=== PATIENT | female | born 1990 | race Caucasian/White ===

== ENCOUNTER 2020-03-09 07:00 | Outpatient (CLI) | payer OTHER | END 2020-03-09 23:59 | disposition home or self-care (01) | LOC: LAB.R 07:00 | PROVIDERS: ATTEND Surgery | DX: K92.1 Melena (principal) | CPT/HCPCS: 81599; 87045; 87046; 87177; 87209; 87427 ==

== ENCOUNTER 2021-03-30 14:42 | Outpatient (CLI) | payer OTHER | END 2021-03-30 14:43 | disposition home or self-care (01) | LOC: NS 14:42 | PROVIDERS: ATTEND Physician Assistant Medical | DX: Z71.3 Dietary counseling and surveillance (principal); K58.9 Irritable bowel syndrome, unspecified | CPT/HCPCS: 97802 ==

== ENCOUNTER 2022-07-15 13:45 | Outpatient (CLI) | payer OTHER ==
--- NOTE | 2022-07-15 14:21 | XRAY Report ---
PROCEDURE: Knee 3 View LT INDICATIONS: KNEE PAIN LEFT TECHNIQUE: 3 views of the left knee were acquired. COMPARISON: None. FINDINGS: Bones: Postsurgical changes are seen from prior anterior cruciate ligament reconstruction. No acute osseous fracture or dislocation. Sclerotic appearance of the medial femoral condyle is nonspecific an d may be related to prior surgery or degenerative changes. Small marginal osteophytes are seen at the medial femorotibial joint. Soft tissues: No joint effusion. No suspicious soft tissue calcifications. IMPRESSION: 1.Postsurgical changes from prior anterior cruciate ligament reconstruction. 2.Heterogeneous sclerotic appearance of the medial femoral condyle is of uncertain etiology and may b e related to prior surgery versus degenerative changes or another process. Consider MRI for further e valuation if symptoms persist. Reviewed by: Denny Farias MD on 07/15/2022 2:20 PM PST Approved by: Denny Farias MD on 07/15/2022 2:20 PM PST Station ID: [id number]
== END 2022-07-15 13:46 | disposition home or self-care (01) ==
LOC: DI 13:45
PROVIDERS: ATTEND Physician Assistant Medical
DX: M25.562 Pain in left knee (principal)

== ENCOUNTER 2022-08-03 17:11 | Outpatient (CLI) | payer OTHER ==
--- NOTE | 2022-08-04 09:52 | MRI Report ---
PROCEDURE: KNEE WO - LT INDICATIONS: LEFT KNEE PAIN TECHNIQUE: Noncontrast sagittal PD fast spin echo and T2 fast spin echo with fat saturation, sagittal 3-D gradie nt sequence with fat saturation; coronal T1 spin echo and PD fast spin echo with fat saturation, and axial PD fast spin echo with fat saturation through the knee. COMPARISON: 07/15/2022 FINDINGS: Image quality: Good Menisci Medial: There is truncation and probably postsurgical changes of the medial meniscus. The free edge i n particular appears diminutive, particularly at the posterior root (09/26). Lateral: Intact. Meniscopopliteal fascicles maintained. Cruciate ligaments: Status post ACL graft replacement. There is a focal area high T2 signal at the po sterior aspect of the graft. The PCL appears intact. Medial structures MCL: Intact Pes anserine tendons: Intact Semimembranosus: Intact Lateral structures LCL: Intact Biceps femoris: Intact IT band: Intact Popliteus tendon: Intact Anterior structures Extensor mechanism: Intact Fat pads: Mild focal edema at the superolateral portion of Hoffa's fat pad. Medial retinaculum: Intact. Trochlea: Unremarkable morphology. Bone and joint Bones: No fracture, dislocation, or suspicious edema Cartilage: Near full-thickness defect of the patellar median ridge with mild underlying marrow edema (3/6, 8). There is also a full-thickness fissure in the central weightbearing portion of the medial f emoral condyle (5/20), with mild underlying marrow edema. Joint space: Small joint effusion. Martinez's cyst: None Soft tissues: No significant vascular or other soft tissue pathology. IMPRESSION: Status post ACL graft repair with a focal area of high T2 signal in the posterior mid g raft, possibly sequelae of a partial tear. Sequela medial meniscal injury, possibly with postsurgical changes. There is truncation, particularly at the free edge near the root (09/26). Cartilage defects at the patellar median ridge and central weightbearing portion of the medial femora l condyle, with mild underlying marrow edema. Small joint effusion. Mild edema at the superolateral portion of Hoffa's fat pad. Reviewed by: Jett Clayton MD on 08/04/2022 9:50 AM PDT Approved by: Jett Clayton MD on 08/04/2022 9:50 AM PDT Station ID: [id number]
== END 2022-08-03 17:12 | disposition home or self-care (01) ==
LOC: DI 17:11
PROVIDERS: ATTEND Physician Assistant Medical
DX: R93.6 Abnormal findings on diagnostic imaging of limbs (principal); R93.89 Abnormal findings on diagnostic imaging of other specified body structures; M25.462 Effusion, left knee

== ENCOUNTER 2023-04-27 16:05 | Outpatient (CLI) | payer OTHER | END 2023-04-27 16:06 | disposition home or self-care (01) | LOC: DI 16:05 | PROVIDERS: ATTEND Physician Assistant Medical | DX: Z53.9 Procedure and treatment not carried out, unspecified reason (principal) ==

== ENCOUNTER 2023-05-03 14:36 | Outpatient (CLI) | payer OTHER ==
--- NOTE | 2023-05-04 17:58 | XRAY Report ---
PROCEDURE: TMJ's-Temporal Mandibular Jts INDICATIONS: ARTHRITIS OF LEFT TEMPOROMANDIBULAR JOINT TECHNIQUE: 6 views of the temporomandibular joints were obtained COMPARISON: None FINDINGS: Bones: Both mandibular condyles have an appropriate to contour. Joint spaces maintained. Opening clos ed mouth views unremarkable Soft tissues: No suspicious soft tissue calcifications. IMPRESSION: Normal temporal mandibular radiographs Reviewed by: Shankar Ball MD on 05/04/2023 4:57 PM AKST Approved by: Shankar Ball MD on 05/04/2023 4:57 PM AKST Station ID: [id number]
== END 2023-05-03 14:37 | disposition home or self-care (01) ==
LOC: DI.N 14:36
PROVIDERS: ATTEND Physician Assistant Medical
DX: M26.642 Arthritis of left temporomandibular joint (principal)

== ENCOUNTER 2025-02-14 16:09 | Observation (INO) ==
--- OUTSIDE RECORDS SUMMARY | 2025-02-14 16:50 | EXTERNAL MEDICAL SUMMARY RPT | Continuity of Care Document ---
Author Organization [place] Address [address] [address] Phone Problems date description facility 2025-02-14 10:38 Myalgia, unspecified site [facility] 2025-02-14 10:38 Other specified soft tissue dis orders [facility] 2025-02-14 10:47 Myalgia, unspecified site [facility] 2025-02-14 10:47 Other specified soft tissue dis orders [facility] Results/Labs test date facility value unit notes Result panel 1 SPECIFIC GRAVITY,URINE 2025-02-14 10:30 [facility] <=1.005 (missing) (missing) WBC,URINE 2025-02-14 10:30 [facility] 0-3 /hpf (missing) RBC,URINE 2025-02-14 10:30 [facility] 0-5 /hpf (missing) UROBILINOGEN,URINE 2025-02-14 10:30 [facility] 0.2 (NORMAL) e.u./dl (missing) PH,URINE 2025-02-14 10:30 [facility] 6.5 ph (missing) CLARITY,URINE 2025-02-14 10:30 [facility] CLEAR (missing) (missing) COLOR,URINE 2025-02-14 10:30 [facility] LT. YELLOW (missing) (missing) LEUKOCYTE ESTERASE, URINE 2025-02-14 10:30 [facility] NEGATIVE (missing) (missing) NITRITE,URINE 2025-02-14 10:30 [facility] NEGATIVE (missing) (missing) OCCULT BLOOD,URINE 2025-02-14 10:30 [facility] NEGATIVE (missing) (missing) BILIRUBIN,URINE 2025-02-14 10:30 [facility] NEGATIVE (missing) Bilirubin can be influenced by color interference. Please correlate positive results with clinical presentation GLUCOSE, URINE (UA) 2025-02-14 10[facility] NE[facility]missing) KETONES,URINE (UA) 2025-02-14 [facility] NEGAT[facility] mg/dl (missing) PROTEIN,URINE 2025-02-14 [facility] NEGATIVE mg/dl (missing) UR CULTURE IF IND 2025-02-14 10:30 [facility] NOT INDICATED (missing) (missing) SQUAMOUS EPITHELIAL CELL,UR 2025-02-14 10:[facility] Squamous (missing) (missing) BACTERIA,URINE 2025-02-14 10:30 [facility] /hpf (missing) Result panel 2 CREATININE 2025-02-14 10:45 [facility] 1.0 mg/dl As of November 2022 testing method has changed, this may include reference ranges. BILIRUBIN,TOTAL 2025-02-14 10:45 [facility] 1.1 mg/dl As of November 2022 testing method has changed, this may include reference ranges. ALBUMIN/GLOBULIN RATIO 2025-02-14 10:45 [facility] 1.7 (missing) (missing) CHLORIDE 2025-02-14 10:45 [facility] 105 mmol/l As of November 2022 testing method has changed, this may include reference ranges. SODIUM 2025-02-14 10:45 [facility] 137 mmol/l (missing) BUN - BLOOD UREA NITROGEN 2025-02-14 10:45 [facility] 15 mg/dl As of November 2022 testing method has changed, this may include reference ranges. ALT ALANINE AMINOTRANSFERASE 2025-02-14 10:45 [facility] 193 iu/l As of November 2022 testing method has changed, this may include reference ranges. GLOBULIN 2025-02-14 10:45 [facility] 2.6 g/dl (missing) CARBON DIOXIDE - CO2 2025-02-14 10:45 [facility] 26 mmol/l As of November 2022 testing method has changed, this may include reference ranges. ALKALINE PHOSPHATASE 2025-02-14 10:45 [facility] 34 iu/l As of November 2022 testing method has changed, this may include reference ranges. CK- CREATINE KINASE 2025-02-14 10:45 [facility] 77405 iu/l As of November 2022 testing method has changed, this may include reference ranges. POTASSIUM 2025-02-14 10:45 [facility] 4.0 mmol/l As of November 2022 testing method has changed, this may include reference ranges. ALBUMIN 2025-02-14 10:45 [facility] 4.3 g/dl As of November 2022 testing method has changed, this may include reference ranges. AST ASPARTATE AMINOTRANSFERASE 2025-02-14 10:45 [facility] 459 iu/l As of November 2022 testing method has changed, this may include reference ranges. ANION GAP 2025-02-14 10:45 [facility] 6.0 (missing) (missing) TOTAL PROTEIN 2025-02-14 10:45 [facility] 6.9 g/dl As of November 2022 testing method has changed, this may include reference ranges. GFR - MDRD 2025-02-14 10:45 [facility] 64 (missing) The IDMS-traceable MDRD Study Equation has been validated extensively in and populations between the ages of 18 and 70 with impaired kidney function (eGFR < 60 mL/min/1.73m2) and has shown good performance for patients with all common causes of kidney disease. Although this equation has not been validated for patients older than 70, an MDRD-derived eGFR may still be a useful tool for providers caring for patients older than 70. References: http://www.nkdep. nih.gov/lab-evalu ation/gfr/creatin ine-stand ardization, last updated July 2011. GLUCOSE 2025-02-14 10:45 [facility] 82 mg/dl As of November 2022 testing method has changed, this may include reference ranges. CALCIUM 2025-02-14 10:45 [facility] 9.1 mg/dl As of November 2022 testing method has changed, this may include reference ranges. Social History date description facility
--- NOTE | 2025-02-14 16:52 | ED Physician Documentation ---
History of Present Illness Stated complaint Stated Complaint: BILAT ARM SWELLING/SORENESS Chief complaint Chief Complaint: General History obtained from History obtained from: Patient History of Present Illness Pain level max: 6 Pain level now: 3 Additonal information Additional information: Patient is a 34-year-old female who presents to the emergency department stating that she had a heavy workout a few days ago. Started noticing swelling to the forearms and pain yesterday. Went to the walk-in clinic today and had laboratory testing performed that showed a CK of over 35,000. Sent here for rhabdomyolysis. No numbness or tingling. Nothing makes it better or worse. Has not had similar symptoms previously. Review of Systems Constitutional Denies: Fever or Chills Meds/Allgy Home Medications Ambulatory Orders Medication Instructions Recorded Confirmed norethindrone-e.estradiol 1 tab PO QDAY #28 tabs 02/1002/14/25 triphasic 0.5 mg/0.75 mg/1 mg-35 mcg tablet (Nortrel (28)) Allergies Allergies Allergy/AdvReac Type Severity Reaction Status Date / Time No Known Drug Allergies Allergy Verified 02/14/25 16:46 PFSH Active Problems All Active Problems (Updated 02/14/25 @ 17:56 by Gertrude Lau) Leukocytosis (Acute) Elevated LFTs (Acute) Rhabdomyolysis (Acute) Hematuria (Acute) Dysuria (Acute) Social History Social History (Updated 02/14/25 @ 17:36 by Gertrude Lau) Smoking Status: Never smoker Living arrangement: At home Marital Status: Living Condition: With spouse/s.o. 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 Exam Exam Vital Signs: Vital Signs x48h Temp Pulse Resp BP Pulse Ox 02/14/25 16:42 38 C H 64 18 144/86 H 100 Constitutional normal general appearance and no apparent distress HENMT oropharynx normal moist mucous membranes Eyes PERRL Neck/C-Spine visual inspection normal Respiratory breath sounds equal bilaterally, normal respiratory effort and clear to auscultation bilaterally Cardiovascular normal heart rate noted and regular rhythm noted Gastrointestinal abdomen normal to inspection, abdomen soft to palpation, nontender to palpation and nondistended Genitourinary no CVA tenderness Extremities Mild swelling to the bilateral forearms. Neurovascular intact. All compartments are soft. Neurology speech normal Psychiatry mental status grossly normal and oriented x3 Skin skin color normal Results Vitals Vitals: Vital Signs - 24 hr 02/14/25 16:42 Temperature 38 C H Temperature Source Temporal Artery Scan Pulse Rate 64 Respiratory Rate 18 Blood Pressure 144/86 H O2 Saturation 100 O2 Source Room air Pain Intensity 2 Oxygen O2 Source Room air PD Medical Decision Making ED course Complexity details: reviewed results, re-evaluated patient, considered differential and d/w patient ED course: Patient with rhabdomyolysis on outpatient laboratory testing today. CK over 35,000. LFTs are elevated as well. Given IV fluids. No abdominal pain or tenderness. No vomiting. Discussed the case with the hospitalist who accepts. No compartment syndrome. All forearm compartments are soft. This document was made in part using voice recognition software. While efforts are made to proofread this document, sound alike and grammatical errors may occur. Discharge Plan Discharge Patient Disposition: 68 [facility] DC/Xfer Condition: Stable Clinical Impression: Elevated LFTs Rhabdomyolysis Qualifiers: Rhabdomyolysis type: non-traumatic Qualified Code(s): M62.82 - Rhabdomyolysis Interventions: ED Admission Assessment Last Done: 02/14/25 17:34
--- NOTE | 2025-02-14 17:15 | HISTORY & PHYSICAL EXAMINATION ---
Chief Complaint Chief Complaint Chief Complaint: Bilateral upper extremity swelling and soreness History of Present Illness Admitted From Admitted From:: Sent by walk-in clinic History Obtained From Records Reviewed: EHR History obtained from: Patient, EHR Exam Limitations: None History of Present Illness HPI Comment/Other: Manda De Jesus is a 34-year-old female with no significant past medical history who presents with chief complaint of bilateral upper extremity swelling, found to have rhabdomyolysis at the walk-in clinic. Ms. De Jesus's story begins on Saturday 02/10, when she noted sore upper arms after an intense session of CrossFit training. Notably, cross-fit training has been a regular routine for her, however she engaged in a significantly intense upper arm workout that day. She states she normally has some level of soreness after CrossFit sessions. 02/11, she noticed she couldn't do as much exercise as her shoulder ROM was mildly limited, including internal/external rotation and adduction/abduction, with increasing soreness. 02/12, she engaged in another CrossFit session and continued to notice worsening soreness which ultimately was accompanied by BUE swelling from the mid-forearm to upper triceps on 02/13, at which point she took a break from CrossFit. She presented herself to the walk-in clinic in the morning of 02/14 with concerns of worsening BUE soreness and swelling, at which point labs were obtained CK, CBC, CMP, and U[place]. [place] [address] and urged to present to the ED for further evaluation. In the ED, she was given 1L of Plama-Lyte. She is admitted under Observation status with the Hospitalist team for IV fluid administration and mo nitoring. Currently, she has no overall complaints aside from continued swelling from the mid-forearm to upper triceps bilaterally, with remaining soreness. She denies chest pain, palpitations, dyspnea, headache, dizziness. She has not had any changes to bowel or bladder habits, and has not observed any abnormalities to the character of her urine or stool. She denies numbness or tingling, no changes to fine motor ability, and no other focal deficits. Meds/Allgy Home Medications Ambulatory Orders Medication Instructions Recorded Confirmed norethindrone-e.estradiol 1 tab PO QDAY #28 tabs 02/1002/14/25 triphasic 0.5 mg/0.75 mg/1 mg-35 mcg tablet (Nortrel (28)) Allergies Allergies Allergy/AdvReac Type Severity Reaction Status Date / Time No Known Drug Allergies Allergy Verified 02/14/25 16:46 PFSH Active Problems All Active Problems (Updated 02/14/25 @ 17:56 by Gertrude Lau) Leukocytosis (Acute) Elevated LFTs (Acute) Rhabdomyolysis (Acute) Hematuria (Acute) Dysuria (Acute) Social History Social History (Updated 02/14/25 @ 17:36 by Gertrude Lau) Smoking Status: Never smoker Living arrangement: At home Marital Status: Living Condition: With spouse/s.o. 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 POLST Patient has POLST: No POLST on file?: No POLST CPR Status: Attempt Resuscitation (CPR) Level of Medical Intervention: Full Treatment Review of Systems Status of ROS: 10 or more systems reviewed and unremarkable except as noted in history and below Constitutional Denies: Fatigue, Fever, Chills, Malaise or Weakness Eyes Denies: Change in vision Ears, nose, mouth, and throat Denies: Change in hearing Cardiovascular Denies: chest pain, palpitations, lightheadedness, shortness of breath with exer tion, shortness of breath when lying down or Decreased exercise tolerance Respiratory Denies: Shortness of breath or Wheezing Gastrointestinal Denies: Abdominal pain, Nausea, Vomiting or Change in stool character Genitourinary Denies: Painful urination, Urinary frequency, Urinary urgency, Urinary incontinence, Blood in urine, Difficulty voiding or Decreased urine ouput Musculoskeletal Reports: Extremity swelling (BUE from mid-forearm to upper triceps) and Muscle aches (Soreness in BUE); Denies: Muscle weakness Integumentary/Breast Denies: Rash or Sores Neurological Denies: Headache, General weakness, Focal weakness, Weakness in extremities, N umbness in extremities, Abnormal gait, Lack of coordination, Dizziness or Confusion Endocrine Denies: Fatigue Allergic/Immunologic Denies: Wheezing Prior Level of Functionality: Patient is otherwise healthy and independent with all ADLs, does not use assistive device for ambulation. Exam Exam Vital Signs: Vital Signs x48h Temp Pulse Resp BP Pulse Ox 02/14/25 16:42 100.4 F H 64 18 144/86 H 100 Constitutional normal general appearance, average body habitus and alert HENMT normocephalic, head/scalp atraumatic, external ears normal and oral mucous membranes normal Eyes PERRL and EOMs intact bilaterally Neck/C-Spine visual inspection normal, trachea midline and cervical full ROM noted Lymph no lymphadenopathy noted Respiratory breath sounds equal bilaterally, normal respiratory effort, clear to auscultation bilaterally, no wheezes, no rales, no retractions and no use of accessory muscles Cardiovascular normal heart rate noted, regular rhythm noted, no murmur, no JVD and peripheral pulses 2+ throughout Gastrointestinal abdomen normal to inspection, abdomen soft to palpation, nontender to palpation and normoactive bowel sounds Genitourinary no CVA tenderness Back/Pelvis spine normal to inspection Extremities abnormal to inspection (Mid-forearm to posterior triceps swelling), abnormal to palpation (Skin tautness in mid-forearm, swelling is not very obvious on exam) and full ROM BUE internal/external rotation, abduction/adduction, supination intact. Neurology no movement abnormality noted, no focal motor deficit noted, no sensory deficits noted, speech normal, coordination normal and GCS 15 Motor strength 5/5 across all extremities. Psychiatry oriented x3, thought process normal, cooperative and memory normal Skin skin color normal, skin turgor normal and no jaundice Conclusion/Plan Problem List (1) Rhabdomyolysis: Qualifiers: Rhabdomyolysis type: non-traumatic Qualified Code(s): M62.82 - Rhabdomyolysis (2) Leukocytosis: Qualifiers: Leukocytosis type: other Qualified Code(s): D72.828 - Other elevated white blood cell count (3) Elevated LFTs: Plan: [place] [address] and elevated liver enzymes AST 459, 193, WBC mildly elevated 11.3. She denies genitourinary symptoms or abnormal urine c haracter, UA was unremarkable. Given her intensive CrossFit history I suspect rhabdomyolysis secondary to strenuous activity, with associated transaminitis and reactive leukocytosis. - Trend CMP, CK levels in AM - Monitor electrolytes, replete as needed - Maintenance IVF LR, encourage PO fluids - Monitor for fluid overload (O2 needs, dyspnea, edema) - Strict I/O - Neurovascular checks q4h to monitor for compartment syndrome - Advised she should not engage in excessive physical activity for at least one week Plan Inpatient Checklist Lines/Drains/Airways: PIV Fluids/Electrolytes/Nutrition: IVF, Regular diet DVT Prophylaxis: Deferred at this time, patient is very active at baseline, ambulatory while inpatient as well Barriers to Discharge: Back home to her original living situation pending improvement of CK and liver enzymes Lab Results Lab results reviewed: Yes Diagnostic Imaging Results Diagnostic Imaging Results: positive Final report reviewed
[2025-02-14] MEDS: ELECTROLYTE-A SOLUTION 1,000 ML IV STA (17:20)
[2025-02-14] MEDS ORDERED: ACETAMINOPHEN 325 MG TABLET PO PRN (17:54)
[2025-02-14] MEDS ORDERED: SODIUM CHLORIDE FLUSH 0.9% 10 ML SYRINGE IVP PRN (17:54)
[2025-02-14] MEDS ORDERED: ONDANSETRON ODT 4 MG TABLET TL PRN (17:54)
[2025-02-14] MEDS: LACTATED RINGERS 1,000 ML IV ONE (20:11)
[2025-02-14] MEDS: SODIUM CHLORIDE FLUSH 0.9% 10 ML SYRINGE IVP SCH (20:12)
[2025-02-14] MEDS: LACTATED RINGERS 1,000 ML IV SCH (21:30)
[2025-02-15 05:42] LABS: HCT - HEMATOCRIT 39.7 % (37.0-47.0); HGB - HEMOGLOBIN 12.7 g/dL (12.0-16.0); MEAN PLATELET VOLUME 10.2 fL (7.9-10.8); PLT - PLATELET COUNT 221.0 10^3/uL (130-450); RED CELL DISTRIBUTION WIDTH 12.7 % (12.0-15.0)
[2025-02-15 05:57] LABS: ALT ALANINE AMINOTRANSFERASE 166.0 IU/L (10-60); AST ASPARTATE AMINOTRANSFERASE 351.0 IU/L (10-42); BUN - BLOOD UREA NITROGEN 10.0 mg/dL (6-20); CARBON DIOXIDE - CO2 25.0 mmol/L (21-32); CREATININE 0.9 mg/dL (0.6-1.3); GFR - MDRD 73.0 (>89)
[2025-02-15 06:50] LABS: CK- CREATINE KINASE 24240.0 IU/L (30-223)
--- NOTE | 2025-02-15 07:02 | PHARMACY PROGRESS NOTE ---
Best Possible Medication History Admit Date and Time: 02/14/25 1656 Home Medications Medication Instructions Recorded Confirmed Type norethindrone-e.estradiol 1 tab PO QDAY #28 tabs 02/1002/14/25 Rx triphasic 0.5 mg/0.75 mg/1 mg-35 mcg tablet (Nortrel (28)) Processed by: Pharmacy Medications reviewed in ED?: No Medication History completed: Yes Patient Interview: Completed [facility] Statement: As the person ultimately responsible for medication therapy, providers are able to order a medication from an existing home medication list in [facility] via the "Reconcile Routine" prior to Confirmation of that medication by marketing support manager. Such practice is discouraged except when the physician, in their clinical judgment, deems that a medical need exists for a medication without regard to previous use.
--- NOTE | 2025-02-15 09:04 | PROVIDER PROGRESS NOTE ---
Subjective Prog Note Date Prog Note Date: 02/15/25 Prog Note Time: 08:57 Subjective Pt reports feeling: No change Subjective: Manda De Jesus is a 34-year-old female with no significant past medical history who presents with chief complaint of bilateral upper extremity swelling after CrossFit training admitted with rhabdomyolysis. Today, Manda reports no improvements to her BUE swelling, but has not noted increased swelling. She continues to endorse soreness localized to the BUE from the mid-forearm to upper triceps. She is amenable to staying one more night to ensure her CK and BUE swelling continues to improve. She denies numbness, tingling, changes to ROM or sensation. She states she has been urinating every 45 minutes, is looking forward to walking around the halls today. Current Medications Current Medications Current Medications: Current Medications Generic Name Dose Route Start Last Admin Trade Name Freq PRN Reason Stop Dose Admin Acetaminophen 650 mg 02/14/25 17:54 Acetaminophen 325 Mg Tablet PO Q4HR PRN Pain 1 to 4, or Fever Lactated Ringer's 1,000 mls @ 150 mls/hr 02/14/25 17:54 02/15/25 03:56 Lr IV 150 mls/hr .[id number] SARAH Administration Ondansetron HCl 4 mg 02/14/25 17:54 Ondansetron Odt 4 Mg Tablet TL Q6HR PRN Nausea / Vomiting Sodium Chloride 10 ml 02/14/25 17:54 Sodium Chloride Flush 0.9% 10 Ml Syringe IVP PRN PRN NEEDED PER PROVIDER ORDERS Sodium Chloride 10 ml 02/14/25 17:54 02/15/25 01:39 Sodium Chloride Flush 0.9% 10 Ml Syringe IVP Not Given 0100,0900,1700 [facility] Objective Vital Signs/Intake & Output Reviewed Vital Signs: Yes Vital Signs: Vital Signs x48h Temp Pulse Resp BP BP Pulse Ox 02/15/25 08:15 36.7 C 50 L 18 124/61 98 02/15/25 08:10 36.7 C 57 L 16 123/75 97 02/15/25 04:39 36.7 C 52 L 18 123/57 L 96 Intake & Output: Intake & Output 02/12/25 02/13/25 02/14/25 02/15/25 23:59 23:59 23:59 23:59 Intake Total 3600 / 3600 1962 Output Total 2975 / 2975 4260 / 4260 Balance 625 / 625 -2297 / -2297 Weight (kg) 65 kg Objective General Appearance: positive No acute distress and Alert Eyes Bilateral: positive Normal inspection ENT: positive ENT inspection nml Neck: positive Nml inspection, No JVD and Trachea midline Respiratory: positive Breath sounds nml; negative Wheezes, Rales or Rhonchi Cardiovascular: positive Bradycardia (Regular rhythm) Peripheral Pulses: 2+: Radial (R) and 2+: Radial (L) Abdomen: positive Non-tender, Nml bowel sounds and No distention Skin: positive Color nml, Warm and Dry Extremities: positive Non-tender; negative Nml appearance (Swelling to BUE, R>L, mid-forearm to upper triceps posteriorly and medially; R appears increased from yesterday) Neurologic/Psychiatric: positive Oriented x3, Motor nml, Sensation nml and Mood/affect nml Lab Results 02/15/25 05:34 02/15/25 05:34 Other Labs: Lab Results x24hrs 02/15/25 Range/Units 05:34 WBC 8.9 (4.8-10.8) x10^3/uL RBC 4.25 (4.20-5.40) 10^6/uL Hgb 12.7 (12.0-16.0) g/dL Hct 39.7 (37.0-47.0) % MCV 93.4 (81.0-99.0) fL MCH 29.9 (27.0-31.0) pg MCHC 32.0 (32.0-36.0) g/dL RDW 12.7 (12.0-15.0) % Plt Count 221 (130-450) 10^3/uL MPV 10.2 (7.9-10.8) fL Sodium 138 (135-145) mmol/L Potassium 4.2 (3.5-4.5) mmol/L Chloride 110 (101-111) mmol/L Carbon Dioxide 25 (21-32) mmol/L Anion Gap 3.0 L (6-13) BUN 10 (6-20) mg/dL Creatinine 0.9 (0.6-1.3) mg/dL Estimated GFR (MDRD) 73 L (>89) Glucose 86 (74-104) mg/dL Calcium 8.5 (8.5-10.3) mg/dL Magnesium 2.0 (1.7-2.3) mg/dL Total Bilirubin 0.8 (0.2-1.0) mg/dL AST 351 H (10-42) IU/L ALT 166 H (10-60) IU/L Alkaline Phosphatase 30 L (42-121) IU/L Total Creatine Kinase 75279 H* (30-223) IU/L Total Protein 5.6 L (6.4-8.9) g/dL Albumin 3.6 (3.2-5.5) g/dL Globulin 2.0 L (2.1-4.2) g/dL Albumin/Globulin Ratio 1.8 (1.0-2.2) Diagnostic Imaging Diagnostic Imaging Results: positive Final report reviewed Assessment/Plan Problem List (1) Rhabdomyolysis: Qualifiers: Rhabdomyolysis type: non-traumatic Qualified Code(s): M62.82 - Rhabdomyolysis (2) Leukocytosis: Qualifiers: Leukocytosis type: other Qualified Code(s): D72.828 - Other elevated white blood cell count (3) Elevated LFTs: Impression: [place] [address] and elevated liver enzymes AST 459, 193, WBC mildly elevated 11.3. She denies genitourinary symptoms or abnormal urine character, UA was unremarkable. Given her intensive CrossFit history I suspect rhabdomyolysis secondary to strenuous activity, with associated transaminitis and reactive leukocytosis. 02/15 CK decreased to 24K, WBC normal 8.9, AST/ALT improved 351, 166. Kidney function remains normal and no other electrolyte abnormalities. She has had 300-450ml/hr of urine output, no abnormalities to character. She is improving however given no changes to BUE swelling, continued soreness, and increased RUE swelling on exam, elevated CK we would like to keep her inpatient one more night to ensure she doesn't develop compartment syndrome. - Trend CMP, CK levels - Monitor electrolytes, replete as needed - Maintenance IVF LR, encouraging PO fluids - Monitor for fluid overload (O2 needs, dyspnea, edema) - Strict I/O - Neurovascular checks q4h to monitor for compartment syndrome - Advised she should not engage in excessive physical activity for at least one week following hospitalization - Will need close outpatient follow-up in one week to ensure CK levels continue to downtrend, BANDAR resolved, and improving BUE swelling Inpatient Checklist Lines/Drains/Airways: PIV Fluids/Electrolytes/Nutrition: Maintenance IV LR 150 ml/h DVT Prophylaxis: Deferred at this time due to patient's Barriers to Discharge: Return home with , medically ready tomorrow once improved BUE swelling, downtrending CK
[2025-02-16 05:29] LABS: HCT - HEMATOCRIT 37.9 % (37.0-47.0); HGB - HEMOGLOBIN 12.7 g/dL (12.0-16.0); MEAN PLATELET VOLUME 10.0 fL (7.9-10.8); PLT - PLATELET COUNT 207.0 10^3/uL (130-450); RED CELL DISTRIBUTION WIDTH 12.5 % (12.0-15.0)
[2025-02-16 05:50] LABS: ALT ALANINE AMINOTRANSFERASE 143.0 IU/L (10-60); AST ASPARTATE AMINOTRANSFERASE 230.0 IU/L (10-42); BUN - BLOOD UREA NITROGEN 12.0 mg/dL (6-20); CARBON DIOXIDE - CO2 28.0 mmol/L (21-32); CREATININE 0.9 mg/dL (0.6-1.3); GFR - MDRD 73.0 (>89)
[2025-02-16 06:00] LABS: CK- CREATINE KINASE 11923.0 IU/L (30-223)
--- NOTE | 2025-02-16 07:44 | Discharge Summary ---
Discharge Summary Admit Date: 02/14/25 Discharge Date: 02/16/25 Discharging Provider: Dr. Victorina Chavarria Primary Care Provider: Ashwin Soria Code Status: Attempt Resuscitation Discharge Facility Name: Home, self care DIAGNOSES Discharge Diagnoses with Status of Each Condition: Rhabdomyolysisresolving. Patient presented after 3 days of [id number] intense workouts. She noticed bilateral upper extremity swelling. Her CPK was elevated at 35,227. Her creatinine was within normal limits, and she maintained good urine output throughout her stay. On discharge, after 2 days of IV fluids, her CPK is 11,923. She does maintain some bilateral upper extremity swelling, although her right arm is improved. Her left arm still appears swollen. During her stay, she had no numbness or tingling, no changes in sensation, and no pain. She was given all the warning signs of compartment syndrome, and advised to return if she started feeling any of those changes. She was also advised to continue oral hydration in the outpatient setting. She was told to abstain from excessive physical activity, and follow-up with her primary care provider to get her lab work rechecked. Leukocytosisresolved. Elevated LFTslikely due to muscle breakdown, also improving daily. Advised to recheck in the outpatient. HPI History of Present Illness: Per TOOL MACHINE SETUP OPERATOR student Gertrude Lau: Manda De Jesus is a 34-year-old female with no significant past medical history who presents with chief complaint of bilateral upper extremity swelling, found to have rhabdomyolysis at the walk-in clinic. Ms. De Jesus's story begins on Saturday 02/10, when she noted sore upper arms after an intense session of CrossFit training. Notably, cross-fit training has been a regular routine for her, however she engaged in a significantly intense upper arm workout that day. She states she normally has some level of soreness after CrossFit sessions. 02/11, she noticed she couldn't do as much exercise as her shoulder ROM was mildly limited, including internal/external rotation and adduction/abduction, with increasing soreness. 02/12, she engaged in another CrossFit session and continued to notice worsening soreness which ultimately was accompanied by BUE swelling from the mid-forearm to upper triceps on 02/13, at which point she took a break from CrossFit. She presented herself to the walk-in clinic in the morning of 02/14 with concerns of worsening BUE soreness and swelling, at which point labs were obtained CK, CBC, CMP, and UA. [place] [address] and urged to present to the ED for further evaluation. In the ED, she was given 1L of Plama-Lyte. She is admitted under Observation status with the Hospitalist team for IV fluid administration and monitoring. Currently, she has no overall complaints aside from continued swelling from the mid-forearm to upper triceps bilaterally, with remaining soreness. She denies chest pain, palpitations, dyspnea, headache, dizziness. She has not had any changes to bowel or bladder habits, and has not observed any abnormalities to the character of her urine or stool. She denies numbness or tingling, no changes to fine motor ability, and no other focal deficits. HOSPITAL COURSE Hospital Course: Patient is a 34-year-old female with no past medical history who presented after 3 days of [id number] intense workouts. She noticed bilateral upper extremity swelling. Her CPK was elevated at 35,227. Her creatinine was within normal limits, and she maintained good urine output throughout her stay. On discharge, after 2 days of IV fluids, her CPK is 11,923. She does maintain some bilateral upper extremity swelling, although her right arm is improved. Her left arm still appears swollen. During her stay, she had no numbness or tingling, no changes in sensation, and no pain. She was given all the warning signs of compartment syndrome, and advised to return if she started feeling any of those changes. She was also advised to continue oral hydration in the outpatient setting. She was told to abstain from excessive physical activity, and follow- up with her primary care provider to get her lab work rechecked in 1 to 2 weeks. She was discharged safely home in stable condition with close follow up. ALLERGIES Allergies Allergy/AdvReac Type Severity Reaction Status Date / Time No Known Drug Allergies Allergy Verified 02/14/25 16:46 MEDICATIONS Ambulatory Orders Medication Instructions Recorded Confirmed norethindrone-e.estradiol 1 tab PO QDAY #28 tabs 02/1002/14/25 triphasic 0.5 mg/0.75 mg/1 mg-35 mcg tablet (Nortrel (28)) PHYSICAL EXAM AT DISCHARGE Vital Signs: Vital Signs x48h Temp Pulse Resp BP Pulse Ox 02/16/25 08:15 97.7 F 57 L 20 123/71 100 General Appearance: positive No acute distress and Alert Eyes Bilateral: positive Normal inspection ENT: positive ENT inspection nml Neck: positive Nml inspection, No JVD and Trachea midline Respiratory: positive Breath sounds nml; negative Wheezes, Rales or Rhonchi Cardiovascular: positive Bradycardia (Regular rhythm) Peripheral Pulses: 2+: Radial (R) and 2+: Radial (L) Abdomen: positive Non-tender, Nml bowel sounds and No distention Skin: positive Color nml, Warm and Dry Extremities: positive Non-tender; negative Nml appearance (Swelling to BUE, L>R, mid-forearm to upper triceps posteriorly and medially, 26.5 cm on L arm) Neurologic/Psychiatric: positive Oriented x3, Motor nml, Sensation nml and Mood/affect nml LABS 02/16/25 05:21 02/16/25 05:21 FOLLOW UP Follow Up: Follow up with PCP. TIME SPENT Time Spent in Discharge (Minutes): 35 Discharge Plan Discharge Patient Disposition: Home, Self Care Condition: Stable Prescriptions: Continued Nortrel (28) 0.5/0.75/1 mg- 35 mcg tablet 1 tab PO QDAY Qty: 28 1RF Diet: Regular Interventions: Belongings Inventory Last Done: 02/14/25 18:00 Discharge Last Done: 02/16/25 08:44 Discharge Checklist - Nursing Last Done: 02/16/25 08:44 Discharge Vital Signs (30 Minutes) Last Done: 02/16/25 08:15 Health Concerns: You are being discharged after treatment for rhabdomyolysis, a condition where muscle breakdown releases substances into your blood that can harm your kidneys and other organs. Your muscle enzymes (your CPK) are still quite elevated, so please follow these instructions carefully to help your recovery and prevent complications. 1. Hydration: Drink plenty of fluids. Aim for at least 2-3 liters (8-12 cups) of water per day. Staying well-hydrated helps your kidneys flush out harmful substances released from your muscles. I know this is going to be a challenge for you as you mentioned that you don't drink much water, but you can do this! 2. Activity: Rest and avoid strenuous exercise or heavy lifting for at least a week, and until you follow up with your PCP, and they re-check your labs, and give you the green light. Light stretching, recovery yoga, slow walks are what I would start with, as discussed. Gradually return to normal activities as you feel better. Overexertion can cause another episode of muscle breakdown. No Crossfit for now until you get the all-clear from your PCP. 3. Medications: Do not take any new medications, including [id number] pain relievers or supplements, without checking with your doctor, as some can increase the risk of muscle injury or kidney problems. Please avoid NSAIDs at this time (Motrin, Aleve etc.). Tylenol will be okay. 4. Avoid Triggers: Avoid alcohol, illicit drugs, and any substances or activities that may have contributed to your rhabdomyolysis. 5. Watch for Warning Signs: Contact your doctor or seek medical attention if you notice: - Dark (tea- or cola-colored) urine - Decreased urination - Muscle pain, weakness, or swelling that returns or worsens - Swelling in your arms or legs (right now, your circumference at your elbows is around 26cm) - Shortness of breath, chest pain, or irregular heartbeat - Fever or confusion These may be signs of kidney problems or other complications. 6. Follow-Up: Attend all follow-up appointments. Your doctor will check your kidney function, muscle enzymes (like creatine kinase), and electrolytes to ensure you are recovering well. Our social workers have contacted [facility] - they will be contacting you to set up a follow up appointment. If you do not hear from them by Monday, please reach out to the clinic yourself. Summary: - Drink plenty of fluids - Rest and avoid heavy activity - Take medications as directed - Avoid triggers - Watch for warning signs - Keep follow-up appointments Your recovery is important. Please follow these instructions and reach out if you have any concerns. We are glad you're feeling better. Thank you for allowing us to take care of you. Print Language: [place] Patient Instructions: Rhabdomyolysis Stand Alone Forms: PCP List Follow-up Care: Lissa Soria PA-C [Primary Care Provider, Family Practice] Vitals documented within 30 minutes of discharge?: Yes
[2025-02-16 08:43] VITALS: BP 123/71; TEMP 97.7; O2SAT 100
== END 2025-02-16 08:30 | disposition home or self-care (01) ==
LOC: MS2 16:09 → ED 16:09 → MS2 17:34
PROVIDERS: ADMIT Internal Medicine; ATTEND Internal Medicine